=== PATIENT | male | born 1965 | race Two or more races ===

== ENCOUNTER 2016-12-01 03:29 | Emergency (ER) | payer MEDICAID, OTHER ==
[~2016-12-01] VITALS: Ht 172.7 cm; Wt 143.0 kg
[~2016-12-01 03:29] MED LIST: LEVO500T72 PO; TAMS-14 PO
[2016-12-01 03:38] VITALS: Ht 172.7 cm; Wt 143.0 kg
[2016-12-01 04:19] LABS: ADD SCAN DIFF NO
[2016-12-01 04:30] LABS: BASOPHIL # 0.1 10^3/ul (0.0-0.1); BASOPHILS % 0.7 % (0.0-2.0); EOSINOPHILS # 0.3 10^3/ul (0.0-0.5); EOSINOPHILS % 2.2 % (0.0-7.0); HEMATOCRIT 37.6 % (42.0-52.0); HEMOGLOBIN 11.5 g/dl (14.0-18.0); LYMPHOCYTES # 3.3 10^3/ul (0.8-2.9); LYMPHOCYTES % 27.6 % (15.0-51.0); MEAN CORPUSCULAR HEMOGLOBIN 23.8 pg (29.0-33.0); MEAN CORPUSCULAR HGB CONC 30.6 g/dl (32.0-37.0); MEAN CORPUSCULAR VOLUME 77.8 fl (82.0-101.0); MEAN PLATELET VOLUME 9.1 fl (7.4-10.4); MONOCYTES % 8.2 % (0.0-11.0); NEUTROPHIL # 7.2 10^3/ul (1.6-7.5); NEUTROPHILS % 60.3 % (39.0-77.0); PLATELET COUNT 355 10^3/UL (140-415); RED BLOOD COUNT 4.83 10^6/ul (4.70-6.10); RED CELL DISTRIBUTION WIDTH 16.1 % (11.5-14.5)
[2016-12-01 04:35] LABS: INR 0.86; PROTIME 11.7 Sec (12.2-14.2); PT RATIO 0.9
[2016-12-01 04:36] LABS: PARTIAL THROMBOPLASTIN TIME 29.2 Sec (25.0-35.0)
[2016-12-01 04:37] LABS: ALANINE AMINOTRANSFERASE 44 IU/L (13-69); ALBUMIN/GLOBULIN RATIO 1.21; ALKALINE PHOSPHATASE 58 IU/L (42-121); ANION GAP 16 (8-16); ASPARTATE AMINO TRANSFERASE 25 IU/L (15-46); BLOOD UREA NITROGEN 10 mg/dl (7-20); CALCIUM 9.2 mg/dl (8.4-10.2); CARBON DIOXIDE 25 mmol/L (21-31); CHLORIDE 104 mmol/L (97-110); CREATININE 0.72 mg/dl (0.61-1.24); GLUCOSE 144 mg/dl (70-220); POTASSIUM 4.4 mmol/L (3.5-5.1); SODIUM 141 mmol/L (135-144); TOTAL PROTEIN 7.3 g/dl (6.1-8.1)
[2016-12-01 04:48] LABS: B-TYPE NATRIURETIC PEPTIDE 40 PG/ML (0-125)
[2016-12-01 04:51] LABS: TROPONIN-I < 0.012 ng/ml (0.00-0.12)
--- NOTE | 2016-12-01 05:14 | RADRPT ---
PROCEDURE: XR Chest. CLINICAL INDICATION: Chest pain TECHNIQUE: An AP view of the chest was obtained. COMPARISON: None. FINDINGS: There is prominence of the interstitial and central pulmonary vascular markings. No pleural effus ion or pneumothorax is seen. The cardiomediastinal silhouette is mildly enlarged . The osseous s tructures demonstrate senescent changes. IMPRESSION: Mild cardiomegaly with mild pulmonary vascular congestion. RPTAT: HH .Loretta Khan MD, MD Date Time Electronically viewed and signed by .Loretta Khan MD, MD on 12/01/2016 05:14 .G/
[2016-12-01] MEDS ORDERED: ASPI81TA3 PO (05:37)
[2016-12-01] MEDS ORDERED: IBUP-1542 PO (05:37)
[2016-12-01] MEDS ORDERED: METO-448 PO (05:37)
[2016-12-01] MEDS ORDERED: METF-480 PO (05:37)
--- NOTE | 2016-12-01 05:47 | ERA ---
ER Documentation Chief Complaint Date/Time DATE: 12/01/16 TIME: 05:46 Chief Complaint CP started this Am, pt unable to sleep and lie on his back; non radiating HPI Physical chest pain that started this morning. He said he is unable to lie on his back and unable to sleep. Pain is mild to moderate intensity no fevers no chills no nausea no vomiting. No other current complaints. ROS All systems reviewed and are negative except as per history of present illness. Medications Home Meds Reported Medications Ibuprofen* (Ibuprofen*) 600 Mg Tablet, 600 MG PO Q6H Y for PAIN, TAB 12/01/16 Metoprolol Tartrate* (Lopressor*) Unknown Strength Tab, PO BID, #60 TAB 12/01/16 Aspirin* (Aspirin* Chew) 81 Mg Tab.chew, 81 MG PO DAILY, TAB.CHEW 12/01/16 Metformin* (Glucophage*) 850 Mg Tablet, 850 MG PO WITH BREAKFAST DINNE, #30 TAB 12/01/16 Discontinued Scripts Tamsulosin Hcl* (Flomax*) 0.4 Mg Capsr, 0.4 MG PO HS for 30 Days, 1 Refill Prov:VINAY COLLADO S. 05/24/14 Levofloxacin* (Levaquin*) 500 Mg Tablet, 500 MG PO DAILY for 7 Days, TAB Prov:VINAY COLLADO S. 05/24/14 Allergies Allergies: Coded Allergies: No Known Allergy (Unverified , 12/01/16) PMhx/Soc History of Surgery: No Anesthesia Reaction: No Hx Neurological Disorder: No Hx Respiratory Disorders: No Hx Cardiac Disorders: Yes (heart attack ,05/14/14, stent placement) Hx Psychiatric Problems: No Hx Alcohol Use: No Hx Substance Use: No Hx Tobacco Use: Yes (but recently quit) Smoking Status: Former smoker Physical Exam Vitals Vital Signs Date Time Temp Pulse Resp B/P Pulse Ox O2 Delivery O2 Flow Rate FiO2 12/01/16 04:28 Nasal Cannula 2 12/01/16 03:38 97.8 94 20 142/88 97 Physical Exam Const: [] Head: Atraumatic Eyes: Normal Conjunctiva ENT: Normal External Ears, Nose and Mouth. Neck: Full range of motion..~ No meningismus. Resp: Clear to auscultation bilaterally Cardio: Regular rate and rhythm, no murmurs Abd: Soft, non tender, non distended. Normal bowel sounds Skin: No petechiae or rashes Back: No midline or flank tenderness Ext: No cyanosis, or edema Neur: Awake and alert Psych: Normal Mood and Affect Result Diagram: 12/01/1639912/01/16399 Results 24 hrs Laboratory Tests Test 12/01/16 04:00 White Blood Count 12.010^3/ul Red Blood Count 4.8310^6/ul Hemoglobin 11.5g/dl Hematocrit 37.6% Mean Corpuscular Volume 77.8fl Mean Corpuscular Hemoglobin 23.8pg Mean Corpuscular Hemoglobin Concent 30.6g/dl Red Cell Distribution Width 16.1% Platelet Count 74303^3/UL Mean Platelet Volume 9.1fl Neutrophils % 60.3% Lymphocytes % 27.6% Monocytes % 8.2% Eosinophils % 2.2% Basophils % 0.7% Nucleated Red Blood Cells % 0.0/100WBC Neutrophils # 7.210^3/ul Lymphocytes # 3.310^3/ul Monocytes # 1.010^3/ul Eosinophils # 0.310^3/ul Basophils # 0.110^3/ul Nucleated Red Blood Cells # 0.010^3/ul Prothrombin Time 11.7Sec Prothrombin Time Ratio 0.9 INR International Normalized Ratio 0.86 Activated Partial Thromboplast Time 29.2Sec Sodium Level 141mmol/L Potassium Level 4.4mmol/L Chloride Level 104mmol/L Carbon Dioxide Level 25mmol/L Anion Gap 16 Blood Urea Nitrogen 10mg/dl Creatinine 0.72mg/dl Glucose Level 144mg/dl Calcium Level 9.2mg/dl Total Bilirubin 0.0mg/dl Direct Bilirubin 0.00mg/dl Indirect Bilirubin 0.0mg/dl Aspartate Amino Transf (AST/SGOT) 25IU/L Alanine Aminotransferase (ALT/SGPT) 44IU/L Alkaline Phosphatase 58IU/L Troponin I < 0.012ng/ml B-Type Natriuretic Peptide 40PG/ML Total Protein 7.3g/dl Albumin 4.0g/dl Globulin 3.30g/dl Albumin/Globulin Ratio 1.21 Procedures/MDM EKG: Rate/Rhythm: [Normal Sinus Rhythm] QRS, ST, T-waves: [No changes consistent w/ acute ischemia] Impression: [No evidence of ischemia or arrhythmia] Chest X-ray 1V Interpreted by me: Soft Tissue: No acute abnormalities Bones: No acute abnormalities Mediastinum/Cardiac Silhouette/Lungs: [No acute abnormalities] Patient's symptoms are concerning for cardiac cause will require inpatient workup and continuous monitoring. Further w/u for ischemia, arrhythmia, PE or dissection will be deferred to the inpatient team. Accepting Care Team: Current data and ongoing care discussed. Time: 5:30 AM Primary Provider: Hospitalist Consulting: [[facility]] Outstanding Data: none Departure Diagnosis: Primary Impression: Chest pain Qualified Code: R07.9 - Chest pain, unspecified type Condition: Serious IVÁN ZAMARRIPA Dec 01, 2016 05:47
[2016-12-01] MEDS ORDERED: ACETAMINOPHEN 325 MG TAB PO PRN (07:30)
[2016-12-01] MEDS ORDERED: morphine 2 MG INJ IV PRN (07:30)
[2016-12-01] MEDS ORDERED: GLUCAGON 1 MG INJ IM PRN (07:30)
[2016-12-01] MEDS ORDERED: GLUCOSE GEL 15 GRAM TUBE BUCCAL PRN (07:30)
[2016-12-01] MEDS ORDERED: NACL 0.9% 3 ML SYG IV SCH (07:30)
[2016-12-01] MEDS ORDERED: NITROGLYCERIN (SL) 0.4 MG TAB SL PRN (07:30)
[2016-12-01] MEDS ORDERED: ONDANSETRON 4 MG INJ IV PRN (07:30)
[2016-12-01] MEDS ORDERED: GLUCOSE GEL 15 GRAM TUBE PO PRN ×2 (07:30)
[2016-12-01] MEDS ORDERED: DEXTROSE 50% 50 ML SYRINGE IV PRN ×2 (07:30)
[2016-12-01] MEDS ORDERED: INSULIN ASPART [NOVOLOG] 3 ML PEN SC SCH (08:00)
[2016-12-01] MEDS ORDERED: ENOXAPARIN 40 MG/0.4 ML SYG SC SCH (09:00)
[2016-12-01] MEDS ORDERED: ASPIRIN 81 MG TAB PO SCH (09:00)
[2016-12-01 09:39] VITALS: BP 135/64; PULSE 63; RESP 20; TEMP 98
[2016-12-02] MEDS ORDERED: ACCU-CHEK XX SCH (02:00)
== END 2016-12-01 09:41 | disposition left against medical advice (07) ==
LOC: FTE 03:29
DX: R07.9 Chest pain, unspecified (principal); Z79.82 Long term (current) use of aspirin; Z79.84 Long term (current) use of oral hypoglycemic drugs; Z87.891 Personal history of nicotine dependence; Z98.61 Coronary angioplasty status
CPT/HCPCS: 36415; 71010; 80053; 83880; 84484; 85025; 85610; 85730; 93005; J1815; Z7502